=== PATIENT | female | born 1995 | race Caucasian/White ===

== ENCOUNTER 2017-04-08 20:34 | Emergency (ER) | payer MEDICAID, OTHER ==
[~2017-04-08] VITALS: Ht 160 cm; Wt 52.2 kg
[2017-04-08] MEDS ORDERED: LACTATED RINGERS 1,000 ML IV ONE (20:42)
[2017-04-08 20:52] LABS: BASOPHILS % (AUTO) 0 % (0-10); EOSINOPHILS # (AUTO) 0.1 10^3/uL (0.0-0.3); EOSINOPHILS % (AUTO) 1 % (0-10); LYMPHOCYTES # (AUTO) 2.2 X 10^3 (1.0-4.0); LYMPHOCYTES % (AUTO) 30 % (12-44); MEAN CORPUSCULAR HEMOGLOBIN 32 PG (25-34); MEAN CORPUSCULAR HGB CONC 34 G/DL (32-36); MEAN CORPUSCULAR VOLUME 94 FL (80-99); MEAN PLATELET VOLUME 8.9 FL (7.4-10.4); MONOCYTES # (AUTO) 0.4 X 10^3 (0.0-1.0); MONOCYTES % (AUTO) 6 % (0-12); NEUTROPHILS # (AUTO) 4.6 X 10^3 (1.8-7.8); NEUTROPHILS % (AUTO) 63 % (42-75); PLATELET COUNT 207 10^3/uL (130-400); RED CELL DISTRIBUTION WIDTH 11.7 % (10.0-14.5); WHITE BLOOD COUNT 7.3 10^3/uL (4.3-11.0)
[2017-04-08] MEDS ORDERED: fentaNYL INJECTION 100 MCG/2 ML AMP IVP STA (20:53)
[2017-04-08 21:18] LABS: ALANINE AMINOTRANSFERASE 14 U/L (0-55); ALBUMIN 4.3 G/DL (3.2-4.5); ANION GAP 13 MMOL/L (5-14); ASPARTATE AMINO TRANSFERASE 30 U/L (5-34); BILIRUBIN,TOTAL 0.2 MG/DL (0.1-1.0); BLOOD UREA NITROGEN 10 MG/DL (7-18); BUN/CREATININE RATIO 13; CALCIUM 9.1 MG/DL (8.5-10.1); CARBON DIOXIDE 17 MMOL/L (21-32); CHLORIDE 109 MMOL/L (98-107); CREATINE KINASE 60 U/L (29-168); CREATININE SERUM 0.78 MG/DL (0.60-1.30); GFR ESTIMATED > 60; GLUCOSE 86 MG/DL (70-105); POTASSIUM 4.5 MMOL/L (3.6-5.0); SODIUM 139 MMOL/L (135-145); TOTAL PROTEIN 7.8 G/DL (6.4-8.2)
[2017-04-08 21:24] LABS: ALCOHOL < 10 MG/DL (<10)
--- NOTE | 2017-04-08 21:35 | Diagnostic Imaging Report ---
PROCEDURE: CT head and CT cervical spine without contrast. TECHNIQUE: Multiple contiguous axial images were obtained through the brain and cervical spine without the use of intravenous contrast. Sagittal and coronal reformations through the cervical spine were then performed. Indication: Head and neck pain after fall from stairs. Comparison: Head CT 09/28/2015. Discussion: Head: No intracranial hemorrhage, mass, midline shift, or hydrocephalus. The ventricles and sulci are normal size and configuration for age. The visualized orbits, paranasal sinuses, mastoid air cells, and calvarium are unremarkable. Cervical spine: No acute fracture, subluxation, or other osseous abnormality identified. No significant degenerative disease. Alignment is anatomic. Soft tissues are unremarkable. Impression: 1. Negative head CT. 2. Negative cervical spine CT. Dictated by: Dictated on workstation # [id number]
--- NOTE | 2017-04-08 21:43 | Diagnostic Imaging Report ---
Indication: Back pain after falling off stairs. Technique: Contiguous axial images were obtained through the thoracic and lumbar spine without contrast. Comparison: 09/28/2015. Discussion: Small Schmorl's node within the superior endplates of the T9, T10, T11 vertebral bodies are stable. No compression fracture or abnormal subluxation is otherwise identified. No other acute osseous abnormality identified. Intervertebral disc spaces are well-maintained. Overall alignment is anatomic. Paraspinal soft tissues are unremarkable. Impression: 1. Negative thoracic and lumbar spine CT. Dictated by: Dictated on workstation # [id number]
--- NOTE | 2017-04-08 21:54 | Diagnostic Imaging Report ---
Indication: Pelvic pain after fall from stairs. Discussion: Single AP view of the pelvis was obtained, comparison 09/28/2015. No acute fracture, dislocation, or other osseous abnormality identified. No significant degenerative disease. Alignment is anatomic. Soft tissues are unremarkable. Impression: 1. Negative pelvis. Dictated by: Dictated on workstation # [id number]
--- NOTE | 2017-04-08 21:55 | Diagnostic Imaging Report ---
Indication: Right hip pain after fall from stairs. Discussion: Four views of the right femur were obtained, no comparison. No acute fracture, dislocation, or other osseous abnormality identified. No significant degenerative disease. Alignment is anatomic. Soft tissues are unremarkable. Impression: 1. Negative right femur. Dictated by: Dictated on workstation # [id number]
[2017-04-08 22:10] LABS: BILIRUBIN,URINE NEGATIVE (NEGATIVE); KETONES,URINE NEGATIVE (NEGATIVE); LEUKOCYTE ESTERASE ,URINE NEGATIVE (NEGATIVE); NITRITE,URINE NEGATIVE (NEGATIVE); PH,URINE 7 (5-9); PROTEIN,URINE NEGATIVE (NEGATIVE); UROBILINOGEN,URINE NORMAL (NORMAL)
--- NOTE | 2017-04-08 22:12 | ED General ---
General Chief Complaint: Neurological Problems Stated Complaint: FALL RESULTED FROM SEIZURE Nursing Triage Note: BROUGHT [facility] BY [facility] FOR SEIZURE ACTIVITY Nursing Sepsis Screen: No Definite Risk Allergies and Home Medications Allergies Coded Allergies: No Known Drug Allergies (Unverified , 04/08/17) Past Vznwypj-Rjnndd-Bspjcq Hx Patient Social History Alcohol Use: Denies Use Recreational Drug Use: No Smoking Status: Never a Smoker 2nd Hand Smoke Exposure: No Recent Foreign Travel: No Contact w/Someone Who Travel: No Recent Infectious Disease Expo: No Recent Hopitalizations: No Immunizations Up To Date Tetanus Booster (TDap): Less than 5yrs PED Vaccines UTD: Yes Seasonal Allergies Seasonal Allergies: No Neurological Neurological Disorders: Seizure Disorder Reproductive System : No Blood Transfusions Adverse Reaction to a Blood Tr: No Physical Exam Vital Signs Vital Sign - Last 12Hours 04/08/17 20:56 Temp 98.2 Pulse 76 B/P (MAP) 138/80 O2 Delivery Room Air Capillary Refill : Less Than 3 Seconds Progress/Results/Core Measures Results/Orders Lab Results Laboratory Tests Test 04/08/17 20:45 04/08/17 22:00 Range/Units White Blood Count 7.3 4.3-11.0 10^3/uL Red Blood Count 4.00 L 4.35-5.85 10^6/uL Hemoglobin 12.9 11.5-16.0 G/DL Hematocrit 38 35-52 % Mean Corpuscular Volume 94 80-99 FL Mean Corpuscular Hemoglobin 32 25-34 PG Mean Corpuscular Hemoglobin Concent 34 32-36 G/DL Red Cell Distribution Width 11.7 10.0-14.5 % Platelet Count 207 130-400 10^3/uL Mean Platelet Volume 8.9 7.4-10.4 FL Neutrophils (%) (Auto) 63 42-75 % Lymphocytes (%) (Auto) 30 12-44 % Monocytes (%) (Auto) 6 0-12 % Eosinophils (%) (Auto) 1 0-10 % Basophils (%) (Auto) 0 0-10 % Neutrophils # (Auto) 4.6 1.8-7.8 X 10^3 Lymphocytes # (Auto) 2.2 1.0-4.0 X 10^3 Monocytes # (Auto) 0.4 0.0-1.0 X 10^3 Eosinophils # (Auto) 0.1 0.0-0.3 10^3/uL Basophils # (Auto) 0.0 0.0-0.1 10^3/uL Sodium Level 139 135-145 MMOL/L Potassium Level 4.5 3.6-5.0 MMOL/L Chloride Level 109 H 98-107 MMOL/L Carbon Dioxide Level 17 L 21-32 MMOL/L Anion Gap 13 5-14 MMOL/L Blood Urea Nitrogen 10 7-18 MG/DL Creatinine 0.78 0.60-1.30 MG/DL Estimat Glomerular Filtration Rate > 60 BUN/Creatinine Ratio 13 Glucose Level 86 70-105 MG/DL Calcium Level 9.1 8.5-10.1 MG/DL Magnesium Level 3.0 H 1.8-2.4 MG/DL Total Bilirubin 0.2 0.1-1.0 MG/DL Aspartate Amino Transf (AST/SGOT) 30 5-34 U/L Alanine Aminotransferase (ALT/SGPT) 14 0-55 U/L Alkaline Phosphatase 65 40-136 U/L Total Creatine Kinase 60 29-168 U/L Total Protein 7.8 6.4-8.2 G/DL Albumin 4.3 3.2-4.5 G/DL TSH Bond Testing 0.59 0.35-4.94 UIU/ML Serum Test, Qualitative NEGATIVE NEGATIVE Serum Alcohol < 10 <10 MG/DL Urine Color YELLOW Urine Clarity CLEAR Urine pH 7 5-9 Urine Specific [place] 1.015 L 1.016-1.022 Urine Protein NEGATIVE NEGATIVE Urine Glucose (UA) NEGATIVE NEGATIVE Urine Ketones NEGATIVE NEGATIVE Urine Nitrite NEGATIVE NEGATIVE Urine Bilirubin NEGATIVE NEGATIVE Urine Urobilinogen NORMAL NORMAL MG/DL Urine Leukocyte Esterase NEGATIVE NEGATIVE Urine RBC (Auto) NEGATIVE NEGATIVE Urine RBC NONE /HPF Urine WBC 0-2 /HPF Urine Squamous Epithelial Cells 2-5 /HPF Urine Crystals NONE /LPF Urine Bacteria TRACE /HPF Urine Casts NONE /LPF Urine Mucus NEGATIVE /LPF Urine Culture Indicated NO My Orders Orders - MARTIN VAZQUEZ DO Saline Lock/Iv-Start (04/08/17 20:42) Monitor-Rhythm Ecg Trace Only (04/08/17 20:42) Ct Head/Cervical Spine Wo (04/08/17 20:42) Ct Thoracic/Lumbar Spine Wo (04/08/17 20:42) Saline Lock/Iv-Start (04/08/17 20:42) Alcohol (04/08/17 20:42) Cbc With Automated Diff (04/08/17 20:42) Comprehensive Metabolic Panel (04/08/17 20:42) Creatine Kinase (04/08/17 20:42) Drug Screen Stat (Urine) (04/08/17 20:42) Hcg,Qualitative Serum (04/08/17 20:42) Magnesium (04/08/17 20:42) Thyroid Analyzer (04/08/17 20:42) Ua Culture If Indicated (04/08/17 20:42) Saline Lock/Iv-Start (04/08/17 20:42) Saline Lock/Iv-Start (04/08/17 20:42) Lactated Ringers (Lr 1000 Ml Iv Solution (04/08/17 20:42) Fentanyl Injection (Sublimaze Injection (04/08/17 20:53) Femur, Right, 2 Views (04/08/17 21:00) Pelvis (04/08/17 21:00) Medications Given in ED Current Medications Medications Dose Ordered Sig/Juve Route Start Time Stop Time Status Last Admin Dose Admin Lactated Ringer's 1,000 ml @ 0 mls/hr Q0M ONCE IV 04/08/17 20:42 04/08/17 20:47 DC 04/08/17 21:26 0 MLS/HR Vital Signs/I&O Vital Sign - Last 12Hours 04/08/17 20:56 Temp 98.2 Pulse 76 B/P (MAP) 138/80 O2 Delivery Room Air Blood Pressure Mean: 99 Progress Note : Progress Note UNEVENTFUL ER STAY Departure Impression Impression: Primary Impression: History of seizures Disposition: 01 HOME, SELF-CARE Condition: Stable Departure-Patient Inst. Referrals: NO,LOCAL PHYSICIAN (PCP) Primary Care Physician Patient Instructions: Seizures, Adult (DC) Add. Discharge Instructions: LOTS OF CLEAR LIQUIDS TAKE YOUR MEDICATIONS PRESCRIBED RETURN TO ER IF SYMPTOMS WORSEN FOLLOW UP WITH LOCAL DR OF CHOICE SOON POSSIBLE--LIST PROVIDED All discharge instructions reviewed with patient and/or family. Voiced understanding. Work/School Note: Local Medical Staff Listing MARTIN VAZQUEZ DO April 08, 2017 22:12
[2017-04-08 22:19] LABS: WBC,URINE 0-2 /HPF
[2017-04-08 22:44] VITALS: BP 145/95
== END 2017-04-08 22:44 | disposition home or self-care (01) ==
LOC: ER 20:36
DX: G40.909 Epilepsy, unspecified, not intractable, without status epilepticus (principal); S09.90XA Unspecified injury of head, initial encounter; S39.92XA Unspecified injury of lower back, initial encounter; S79.921A Unspecified injury of right thigh, initial encounter; W10.9XXA Fall (on) (from) unspecified stairs and steps, initial encounter; Y99.8 Other external cause status
CPT/HCPCS: 36415; 70450; 72125; 72128; 72131; 72170; 73552; 80053; 80306; 80320; 81000; 82550; 83735; 84443; 84703; 85025; 93041; 96361; 96374

== ENCOUNTER 2020-07-07 20:14 | Emergency (ER) | payer MEDICAID, MEDICARE ==
[~2020-07-07] VITALS: Ht 160 cm; Wt 68.0 kg
[2020-07-07 20:48] LABS: BASOPHILS % (AUTO) 0 % (0-10); EOSINOPHILS # (AUTO) 0.1 10^3/uL (0.0-0.3); EOSINOPHILS % (AUTO) 1 % (0-10); HEMATOCRIT 40 % (35-52); HEMOGLOBIN 13.4 G/DL (11.5-16.0); LYMPHOCYTES # (AUTO) 3.3 X 10^3 (1.0-4.0); LYMPHOCYTES % (AUTO) 43 % (12-44); MEAN CORPUSCULAR HEMOGLOBIN 32 PG (25-34); MEAN CORPUSCULAR HGB CONC 34 G/DL (32-36); MEAN CORPUSCULAR VOLUME 94 FL (80-99); MEAN PLATELET VOLUME 8.1 FL (7.4-10.4); MONOCYTES # (AUTO) 0.6 X 10^3 (0.0-1.0); MONOCYTES % (AUTO) 8 % (0-12); NEUTROPHILS # (AUTO) 3.7 X 10^3 (1.8-7.8); NEUTROPHILS % (AUTO) 48 % (42-75); PLATELET COUNT 366 10^3/uL (130-400); RED CELL DISTRIBUTION WIDTH 12.4 % (10.0-14.5); WHITE BLOOD COUNT 7.6 10^3/uL (4.3-11.0)
[2020-07-07 21:03] LABS: ALANINE AMINOTRANSFERASE 40 U/L (0-55); ALBUMIN 4.4 GM/DL (3.2-4.5); ALKALINE PHOSPHATASE 73 U/L (40-136); AMYLASE 65 U/L (25-125); BILIRUBIN,TOTAL 0.2 MG/DL (0.1-1.0); BUN/CREATININE RATIO 11; CALCIUM 8.8 MG/DL (8.5-10.1); CARBON DIOXIDE 18 MMOL/L (21-32); CHLORIDE 101 MMOL/L (98-107); CREATININE SERUM 0.76 MG/DL (0.60-1.30); GFR ESTIMATED > 60; GLUCOSE 100 MG/DL (70-105); LIPASE 30 U/L (8-78); POTASSIUM 3.6 MMOL/L (3.6-5.0); SODIUM 136 MMOL/L (135-145)
--- NOTE | 2020-07-07 21:39 | ED General ---
General Chief Complaint: Neurological Problems Stated Complaint: SEZIURES Nursing Triage Note: PT BROUGHT IN BY [facility] FOR SEIZURE LIKE ACTIVITY. PER EMS, PT BECAME VERY COMBATIVE AND HAD FAR AWAY LOOK DURING ACTIVITY. PT STATED PRIOR TO EPISODE, SHE FELT SHE NEEDED TO SPEAK TO GOD. PT IS ALERT AND ORIENTED ON ARRIVAL. STATES SEE NEUROLOGIST AT Nursing Sepsis Screen: No Definite Risk Source of Information: Patient Exam Limitations: No Limitations History of Present Illness Date Seen by Provider: Jul 07, 2020 Time Seen by Provider: 20:22 Initial Comments 25-year-old female who was brought to the emergency room by [facility] for seizure-like activity. EMS reports that she had periods of combativeness and staring through the staff. Patient is alert and oriented on arrival to the em ergency room. She reports that she's had seizures since she was 6 years old and sees a neurologist at . She is not postictal on arrival to the emergency room. Associated Systoms: Seizure Allergies and Home Medications Allergies Coded Allergies: No Known Drug Allergies (Unverified , 04/08/17) Patient Home Medication List Home Medication List Reviewed: Yes Review of Systems Review of Systems Constitutional: see HPI; No chills, No fever Psychiatric/Neurological: See HPI, Seizure All Other Systems Reviewed Negative Unless Noted: Yes Past Pimrdej-Yupohf-Eulvhj Hx Past Med/Social Hx: Reviewed Nursing Past Med/Soc Hx Patient Social History Alcohol Use: Denies Use Recreational Drug Use: No Smoking Status: Never a Smoker 2nd Hand Smoke Exposure: No Recent Foreign Travel: No Contact w/Someone Who Travel: No Recent Infectious Disease Expo: No Recent Hopitalizations: No Immunizations Up To Date Tetanus Booster (TDap): Less than 5yrs PED Vaccines UTD: Yes Seasonal Allergies Seasonal Allergies: No Past Medical History Surgeries: Yes (VAGAL NERVE STIMULATOR X 2; LITHOTRIPSY) Neurological, Renal Respiratory: No Cardiac: No Neurological: Yes Seizure Disorder Female Reproductive Disorders: Denies Genitourinary: No Kidney Stones Gastrointestinal: No Musculoskeletal: No Endocrine: No HEENT: No Cancer: No Psychosocial: Yes Anxiety Integumentary: No Blood Disorders: No Adverse Reaction/Blood Tranf: No Family Medical History Reviewed Nursing Family Hx Physical Exam Vital Signs Vital Signs - First Documented 07/07/20 20:14 Temp 37.2 Pulse 111 Resp 24 B/P (MAP) 124/93 (103) Pulse Ox 96 O2 Delivery Room Air Capillary Refill : Less Than 3 Seconds Height, Weight, BMI Height: 5'3.00" Weight: 115lbs. oz. 52.579380mc; 26.00 BMI Method:Stated General Appearance: No Apparent Distress, WD/WN Eyes: Bilateral Eye Normal Inspection, Bilateral Eye PERRL, Bilateral Eye EOMI HEENT: PERRL/EOMI, TMs Normal, Normal ENT Inspection, Pharynx Normal Respiratory: Chest Non Tender, Lungs Clear, Normal Breath Sounds, No Accessory Muscle Use, No Respiratory Distress Cardiovascular: Regular Rate, Rhythm, No Edema, No Gallop, No JVD, No Murmur, Normal Peripheral Pulses Extremity: Normal Capillary Refill Neurologic/Psychiatric: Alert, Oriented x3, Normal Mood/Affect Skin: Normal Color, Warm/Dry Progress/Results/Core Measures Suspected Sepsis Recent Fever Within 48 Hours: No Infection Criteria Present: None New/Unexplained Altered Menta: No Sepsis Screen: No Definite Risk SIRS Temperature: Pulse: 111 Respiratory Rate: 24 Laboratory Tests 07/07/20 20:25: White Blood Count 7.6 Blood Pressure 124 /93 Mean: 103 Laboratory Tests 07/07/20 20:25: Creatinine 0.76, Platelet Count 366, Total Bilirubin 0.2 Results/Orders Lab Results Laboratory Tests Test 07/07/20 20:25 07/07/20 21:34 Range/Units White Blood Count 7.6 4.3-11.0 10^3/uL Red Blood Count 4.25 L 4.35-5.85 10^6/uL Hemoglobin 13.4 11.5-16.0 G/DL Hematocrit 40 35-52 % Mean Corpuscular Volume 94 80-99 FL Mean Corpuscular Hemoglobin 32 25-34 PG Mean Corpuscular Hemoglobin Concent 34 32-36 G/DL Red Cell Distribution Width 12.4 10.0-14.5 % Platelet Count 366 130-400 10^3/uL Mean Platelet Volume 8.1 7.4-10.4 FL Neutrophils (%) (Auto) 48 42-75 % Lymphocytes (%) (Auto) 43 12-44 % Monocytes (%) (Auto) 8 0-12 % Eosinophils (%) (Auto) 1 0-10 % Basophils (%) (Auto) 0 0-10 % Neutrophils # (Auto) 3.7 1.8-7.8 X 10^3 Lymphocytes # (Auto) 3.3 1.0-4.0 X 10^3 Monocytes # (Auto) 0.6 0.0-1.0 X 10^3 Eosinophils # (Auto) 0.1 0.0-0.3 10^3/uL Basophils # (Auto) 0.0 0.0-0.1 10^3/uL Sodium Level 136 135-145 MMOL/L Potassium Level 3.6 3.6-5.0 MMOL/L Chloride Level 101 98-107 MMOL/L Carbon Dioxide Level 18 L 21-32 MMOL/L Anion Gap 17 H 5-14 MMOL/L Blood Urea Nitrogen 8 7-18 MG/DL Creatinine 0.76 0.60-1.30 MG/DL Estimat Glomerular Filtration Rate > 60 BUN/Creatinine Ratio 11 Glucose Level 100 70-105 MG/DL Calcium Level 8.8 8.5-10.1 MG/DL Corrected Calcium 8.5 8.5-10.1 MG/DL Total Bilirubin 0.2 0.1-1.0 MG/DL Aspartate Amino Transf (AST/SGOT) 34 5-34 U/L Alanine Aminotransferase (ALT/SGPT) 40 0-55 U/L Alkaline Phosphatase 73 40-136 U/L Total Protein 8.0 6.4-8.2 GM/DL Albumin 4.4 3.2-4.5 GM/DL Amylase Level 65 25-125 U/L Lipase 30 8-78 U/L Urine Color YELLOW Urine Clarity CLEAR Urine pH 7.0 5-9 Urine Specific [place] 1.010 L 1.016-1.022 Urine Protein NEGATIVE NEGATIVE Urine Glucose (UA) NEGATIVE NEGATIVE Urine Ketones NEGATIVE NEGATIVE Urine Nitrite NEGATIVE NEGATIVE Urine Bilirubin NEGATIVE NEGATIVE Urine Urobilinogen 0.2 < = 1.0 MG/DL Urine Leukocyte Esterase TRACE H NEGATIVE Urine RBC (Auto) NEGATIVE NEGATIVE Urine RBC NONE /HPF Urine WBC RARE /HPF Urine Squamous Epithelial Cells 5-10 /HPF Urine Crystals NONE /LPF Urine Bacteria TRACE /HPF Urine Casts NONE /LPF Urine Mucus NEGATIVE /LPF Urine Culture Indicated NO Urine Opiates Screen NEGATIVE NEGATIVE Urine Oxycodone Screen NEGATIVE NEGATIVE Urine Methadone Screen NEGATIVE NEGATIVE Urine Propoxyphene Screen NEGATIVE NEGATIVE Urine Barbiturates Screen NEGATIVE NEGATIVE Ur Tricyclic Antidepressants Screen NEGATIVE NEGATIVE Urine Phencyclidine Screen NEGATIVE NEGATIVE Urine Amphetamines Screen NEGATIVE NEGATIVE Urine Methamphetamines Screen NEGATIVE NEGATIVE Urine Benzodiazepines Screen NEGATIVE NEGATIVE Urine Cocaine Screen NEGATIVE NEGATIVE Urine Cannabinoids Screen NEGATIVE NEGATIVE My Orders Orders - STACEY LORENZO Comprehensive Metabolic Panel (07/07/20 20:21) Lipase (07/07/20 20:21) Amylase (07/07/20 20:21) Ua Culture If Indicated (07/07/20 20:21) Urine Bedside (07/07/20 20:21) Ed Iv/Invasive Line Start (07/07/20 20:21) Cbc With Automated Diff (07/07/20 20:21) Drug Screen Stat (Urine) (07/07/20 20:21) Vital Signs/I&O 07/07/20 20:14 Temp 37.2 Pulse 111 Resp 24 B/P (MAP) 124/93 (103) Pulse Ox 96 O2 Delivery Room Air Capillary Refill : Less Than 3 Seconds Blood Pressure Mean: 103 Progress Note : Time: 22:09 Progress Note I have seen and evaluated the patient. I've informed her of her laboratory findings. She has not had any seizure like activity since she has been here. She agrees with plan of care, plans for discharge, return precautions were given. Departure Impression Primary Impression: Seizure-like activity Additional Impression: Epilepsy Departure-Patient Inst. Decision time for Depature: 22:09 Referrals: NO,LOCAL PHYSICIAN (PCP) Primary Care Physician Patient Instructions: Seizures Add. Discharge Instructions: Take medications as previously prescribed. Follow-up with your primary care provider within 1 week for recheck. Call tomorrow morning to schedule an appointment with your neurologist. Return back to the emergency room for worsening symptoms or concerns as needed. All discharge instructions reviewed with patient and/or family. Voiced understanding. STACEY LORENZO Jul 07, 2020 21:39
[2020-07-07 21:42] LABS: BILIRUBIN,URINE NEGATIVE (NEGATIVE); CLARITY,URINE CLEAR; COLOR,URINE YELLOW; GLUCOSE, URINE (UA) NEGATIVE (NEGATIVE); KETONES,URINE NEGATIVE (NEGATIVE); LEUKOCYTE ESTERASE ,URINE TRACE (NEGATIVE); NITRITE,URINE NEGATIVE (NEGATIVE); PROTEIN,URINE NEGATIVE (NEGATIVE)
[2020-07-07 21:47] LABS: BACTERIA,URINE TRACE /HPF; WBC,URINE RARE /HPF
[2020-07-07 21:52] LABS: AMPHETAMINE SCREEN, URINE NEGATIVE (NEGATIVE); BARBITURATE SCREEN URINE NEGATIVE (NEGATIVE); BENZODIAZEPINES SCREEN URINE NEGATIVE (NEGATIVE); CANNABINOID SCREEN, URINE NEGATIVE (NEGATIVE); COCAINE SCREEN URINE NEGATIVE (NEGATIVE); METHAMPHETAMINE SCREEN URINE S NEGATIVE (NEGATIVE); OPIATE SCREEN URINE NEGATIVE (NEGATIVE); TRICYCLIC ANTIDEPRESSANTS SCRE NEGATIVE (NEGATIVE)
[2020-07-07 21:53] LABS: METHADONE STAT NEGATIVE (NEGATIVE); OXYCODONE STAT NEGATIVE (NEGATIVE); PROPOXYPHENE STAT NEGATIVE (NEGATIVE)
[2020-07-07] MEDS ORDERED: ACETAMINOPHEN 500 MG TAB (TYLENOL) ONE (22:23)
[2020-07-07 22:45] VITALS: BP 109/63
== END 2020-07-07 22:45 | disposition home or self-care (01) ==
LOC: EDUNIT# 20:14 → ER 20:18
DX: R29.818 Other symptoms and signs involving the nervous system (principal); G40.909 Epilepsy, unspecified, not intractable, without status epilepticus
CPT/HCPCS: 36415; 80053; 80306; 81000; 82150; 83690; 84703; 85025

== ENCOUNTER → 2021-06-15 | Outpatient (CLI) | payer MEDICARE | LOC: LABNPT 06:36 | PROVIDERS: ATTEND Student in an Organized Health Care Education/Training Program | DX: Z20.822 Contact with and (suspected) exposure to COVID-19 (principal) | CPT/HCPCS: 87635 ==

== ENCOUNTER → 2021-08-31 | Outpatient (CLI) | payer MEDICARE | LOC: LABNPT 06:06 | PROVIDERS: ATTEND Student in an Organized Health Care Education/Training Program | DX: Z20.822 Contact with and (suspected) exposure to COVID-19 (principal) | CPT/HCPCS: 87635 ==